=== PATIENT | male | born 1995 | race Caucasian/White ===

== ENCOUNTER 2023-05-29 16:26 | Emergency (ER) | payer MEDICAID ==
[~2023-05-29] VITALS: Ht 172.7 cm; Wt 122.7 kg
[2023-05-29 16:45] VITALS: BP 152/95; PULSE 119; RESP 18; TEMP 98.5; O2SAT 96
== END 2023-05-29 19:22 | disposition left against medical advice (07) ==
LOC: ER 16:27
DX: M79.672 Pain in left foot (principal); Z53.21 Procedure and treatment not carried out due to patient leaving prior to being seen by health care provider
CPT/HCPCS: 99281; A6449